=== PATIENT | male | born 1990 | race Caucasian/White ===

== ENCOUNTER 2020-04-15 19:36 | Emergency (ER) | payer OTHER, SELFPAY ==
--- NOTE | ~2020-04-15 | XR_ITS ---
EXAMINATION: XR ankle RT min 3V EXAM DATE: 04/15/2020 19:55 INDICATION: Rolled ankle, lateral swelling . Initial encounter. TECHNIQUE: Right ankle frontal, lateral and oblique projections obtained and reviewed. There is no p rior study for comparison. FINDINGS: The right ankle mortise appears intact. There are no acute fractures or dislocations iden tified. There is no subcutaneous gas. There is swelling along the anterior lateral aspect of the an kle. There is probable ankle joint effusion. There are no radiopaque foreign bodies. IMPRESSION: 1. XR ankle RT min 3V exam without acute osseous findings. 2. Anteromedial swelling. 3. Joint effusion. Reviewed, dictated and finalized at location A. K LAYER
--- NOTE | 2020-04-15 19:40 | ED.GENADULT ---
HPI - General Adult General Chief complaint: Extremity Injury, Lower Stated complaint: right ankle injured Time Seen by Provider: 04/15/20 19:54 Source: patient and RN notes reviewed Mode of arrival: ambulatory Limitations: no limitations History of Present Illness HPI narrative: 30-year-old male presents with complains of tenderness and swelling to the right ankle for 1 day. Juma reports he rolled RT ankle today at 18:15 while playing basketball. Ibuprofen 800mg at 19:00 (prior to arrival) with some relief (upon assessment Juma reports has kicked in some). No radiating pain. Numbness and tingling in toes. No loss of mobility. Inability to bear weight due to tenderness. Exacerbation factor consist of movement and bearing weight. The relieving factor is immobility and Ibuprofen. Denies discoloration. Denies altered sensation, back pain, neck pain, and suspected foreign body. Denies hitting head, loss of consciousness, dizziness, syncopal episodes, seizure activities. Denies fever or chills. The patient reports he had COVID-19 in 12/2019. The patient reports he have not been diagnosed recently with COVID-19. The patient reports he is not waiting for the results of a COVID-19 lab test. The patient reports he do not have fever, chills, weakness, or fatigue. The patient reports he do not have a new or worsening cough or shortness of breath. Denies chest pain. The patient reports he do not have any rhinorrhea, congestion, loss of taste, sore throat, nausea, vomiting, abdominal pain, and diarrhea. Tolerating po intake well. Denies recent traveling. Denies concerns for COVID-19 or exposures been home with limited outdoor exposure except for essential household needs, work, and return home. At this time, patient is not suspected of having COVID-19. Some parts of this dictation were generated by voice recognition software and may contain typographical and/or grammatical inaccuracies. Related Data Home Medications Medication Instructions Recorded Confirmed No Home Medications 04/17/19 04/15/20 Allergies Allergy/AdvReac Type Severity Reaction Status Date / Time No Known Allergies Allergy Verified 04/17/19 09:07 Review of Systems Review of Systems: Narrative: CONSTITUTIONAL: Denies fever, chills, sweats. EYES: Denies visual changes, redness, discharge. ENT: Denies rhinorrhea, congestion, sore throat, otalgia. CARDIOVASCULAR: Denies chest pain, palpitations, edema. RESPIRATORY: Denies dyspnea, wheezing, cough GASTROINTESTINAL: Denies abdominal pain, nausea, vomiting, diarrhea. SKIN: Denies rash or itching. MUSCULOSKELETAL: Denies acute back pain or myalgia. Complains of right ankle swelling and pain. NEUROLOGIC: Denies numbness or focal weakness. PSYCHIATRIC: Denies anxiety or depression. All other systems reviewed & are unremarkable except as noted in HPI and below. [facility] Past Medical History Medical History (Updated 04/16/20 @ 00:00 by [facility] Liliya) ACL (anterior cruciate ligament) tear Surgical History Surgical History (Updated 04/15/20 @ 20:15 by SHU Hernandez) History of knee surgery ACL and menisci clean out Family History Family History (Updated 04/15/20 @ 20:17 by SHU Hernandez) Father , related to intestinal rupturing Abnormal intestinal absorption Mother Alive and well Social History Social History (Updated 04/15/20 @ 20:17 by SHU Hernandez) Smoking status: Never smoker Tobacco type: cigarettes Second hand tobacco smoke exposure: No Alcohol intake: current Substance use: current Substance use type: marijuana Living arrangements: with family Occupation/Education: occupation 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 There is no relevant family
[2020-04-15 19:44] VITALS: BP 155/96; PULSE 89; RESP 16; TEMP 36.4; O2SAT 99
== END 2020-04-15 20:26 | disposition home or self-care (01) ==
PROVIDERS: Emergency Provider Nurse Practitioner Family; PCP Physician Assistant
DX: S93.401A Sprain of unspecified ligament of right ankle, initial encounter (principal); X50.9XXA Other and unspecified overexertion or strenuous movements or postures, initial encounter; Y93.67 Activity, basketball
CPT/HCPCS: 73610; 99213; G0463

== ENCOUNTER → 2022-01-02 11:17 | Outpatient (CLI) | payer OTHER, SELFPAY ==
--- NOTE | ~2022-01-02 | XR_ITS ---
XR abdomen/kub 1V 01/02/2022 11:54 INDICATION: Left ureteral stone TECHNIQUE: KUB COMPARISON: None FINDINGS: Bowel gas pattern is normal. There is no evidence of free air, mass, organomegaly, ascites or obstruction. There is a possible distal left ureteral stone overlying the sacrum. The bones appea r intact. IMPRESSION: 1: Possible 3 mm distal left ureteral stone near the expected location of the UVJ. Reviewed, dictated and finalized at location A. IMPRESSION: 1: Possible 3 mm distal left ureteral stone near the expected location of the U VJ.
--- NOTE | ~2022-01-02 | CT_ITS ---
EXAMINATION: CT abdomen pelvis wo con DATE: 01/02/2022 11:46 INDICATION: Left ureteral stone. Left flank pain. TECHNIQUE: Computed tomography (CT) of the abdomen and pelvis was performed without intravenous contr ast. Automated exposure control and iterative reconstruction technique were employed. The dose-length product was 658.27 mGy-cm. COMPARISON: None. FINDINGS: The visualized portions of the lung bases demonstrate minimal atelectasis. No pleural effus ion. The heart size is normal. No pericardial effusion. The liver demonstrates focal steatosis adjace nt to the falciform ligament. The gallbladder, spleen, pancreas, adrenal glands, and right kidney are normal. There is mild left hydronephrosis and hydroureter. There is a 4 mm stone in distal left uret er. There are no dilated loops of bowel. The appendix is normal. There are no pathologically enlarged lymph nodes. There is no free intraperitoneal fluid. IMPRESSION: 1. 4 mm stone in distal left ureter with mild left hydronephrosis and hydroureter. Reviewed, dictated and finalized at location A. IMPRESSION: 1. 4 mm stone in distal left ureter with mild left hydronephrosis and hydrouret er.
== END ==
PROVIDERS: PCP Physician Assistant; Visit Provider Urology
DX: N20.1 Calculus of ureter (principal)
CPT/HCPCS: 74018; 74176

== ENCOUNTER 2022-01-03 11:01 | Day surgery (SDC) | payer OTHER, SELFPAY ==
[2022-01-03] VITALS (8 sets, daily range): BP systolic 118–145; BP diastolic 72–103; PULSE 62–96; RESP 14–19; TEMP 36.1–37; O2SAT 96–100
--- NOTE | ~2022-01-03 | XR_ITS ---
EXAMINATION: XR retrograde pyelo w/stent LT DATE: 01/03/2022 15:43 INDICATION: Left retrograde Polygram with stone extraction and stent placement. TECHNIQUE: 7 fluoroscopic images of the abdomen and pelvis were obtained during procedure performed b jasmina Alcaraz. Radiologist was not present for the imaging or procedure. The amount of fluoroscopy t shahriar used during this procedure was 0.3 minutes. COMPARISON: KUB and CT dated 01/02/2022 FINDINGS: The distal left ureteral stone is not identified on the earliest provided images and has either been extracted or spontaneously passed. Unchanged small round phlebolith in the left hemipelvis. Subsequen t images demonstrate retrograde contrast injections into the left ureter and renal collecting system which appear normal. Final images demonstrate placement of a left intrarenal stent with loops formed in left renal pelvis and in the bladder. IMPRESSION: 1. Left internal ureteral stent in expected position. Prior distal left ureteral stone is no longer v isualized and has likely passed or been extracted. Correlate with procedure note for further detail. Reviewed, dictated and finalized at location A. IMPRESSION: 1. Left internal ureteral stent in expected position. Prior distal left uretera l stone is no longer visualized and has likely passed or been extracted. Correl ate with procedure note for further detail.
--- NOTE | 2022-01-03 11:09 | ED.GENADULT ---
HPI - General Adult General Chief complaint: Abdominal Pain Stated complaint: left kidney stone cant stop vomiting pcp sent here Time Seen by Provider: 01/03/22 11:03 Source: RN notes reviewed History of Present Illness HPI narrative: Patient presents emergency department from home for nausea vomiting. Patient states that he has been having pain in his left flank for approximately 1 week he states he wanted Dr. Alcaraz for urology yesterday was diagnosed with a 4 mm kidney stone on the left side. States has been taking hydrocodone as well as Toradol Zofran and Flomax at home but continues to have nausea vomiting as well as pain. Patient states he is scheduled for surgery this coming Thursday he denies any fevers or chills chest pain shortness of breath or any other symptoms Related Data Home Medications Medication Instructions Recorded Confirmed hydrocodone 5 mg-acetaminophen 325 1 tablet PO PRN PRN Pain 01/02/22 01/02/22 mg tablet ketorolac 10 mg tablet 10 mg PO PRN PRN Pain 01/02/22 01/02/22 ondansetron 4 mg disintegrating 4 mg PO PRN PRN Nausea 01/02/22 01/02/22 tablet tamsulosin 0.4 mg capsule 0.4 mg PO PRN PRN Spasms 01/02/22 01/02/22 Allergies Allergy/AdvReac Type Severity Reaction Status Date / Time No Known Allergies Allergy Verified 04/17/19 09:07 Review of Systems Review of Systems: Gen.: Denies fevers or chills ENT: Denies congestion Respiratory: Denies shortness of breath or cough CV: Denies chest pain or palpitations GI: See HPI I denies burning, urgency, frequency or hematuria Musculoskeletal: Denies back pain or muscle pain Neuro: Denies numbness, tingling, weakness or focal weakness Skin: Denies rash Except as documented, all other systems reviewed and negative [facility] Past Medical History Medical History ACL (anterior cruciate ligament) tear Surgical History Surgical History (Updated 04/15/20 @ 20:15 by SHU Hernandez) History of knee surgery ACL and menisci clean out Family History Family History (Updated 04/15/20 @ 20:17 by SHU Hernandez) Father , related to intestinal rupturing Abnormal intestinal absorption Mother Alive and well Social History Social History Smoking status: Never smoker Tobacco type: cigarettes Second hand tobacco smoke exposure: No Alcohol intake: current Alcohol use details: 1 PER MONTH Substance use: current Substance use type: marijuana Other substance usage details: 2 TIMES PER WEEK 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 CARDIOVASCULAR: Regular rate and rhythm without murmurs rubs or gallops. ABDOMINAL: Soft, nontender, nondistended, no rebound or guarding mild left flank tenderness MUSCULOSKELETAl: Moves all extremities. No clubbing, cyanosis or edema. NEURO: Awake and alert. Following commands, speech normal, no focal deficits SKIN:: Warm, dry. No rashes lesions or abrasions PSYCHIATRIC: Normal affect/mood, Course Course Emergency Course: Viewed imaging from yesterday including CT scan patient with 4 mm left-sided kidney stone Discussed Dr. Acosta will plan for OR today Discussed with patient plan for or in agreement 1250 Dr. Acosta in ED will take patient to the OR Vital Signs Vital signs: Vital Signs Temperature 97.0 F L 01/03/22 11:09 Pulse Rate 65 01/03/22 11:09 Respiratory Rate 16 01/03/22 11:09 Blood Pressure 144/103 H 01/03/22 11:09 Pulse Oximetry 99 01/03/22 11:09 Oxygen Delivery Room Air 01/03/22 11:09 Temperature 97.0 F L
[2022-01-03] MEDS: SODIUM CHLORIDE 0.9% IV 1,000 ML 999 ML IV CONT (11:15)
[2022-01-03] MEDS: MORPHINE SULFATE (*CRX) 4 MG/ML INJ IV PUSH (11:15)
[2022-01-03 11:22] LABS: Basophils Percent Auto 0.4 % (0.2-1.2); Eosinophils Absolute Auto 0.1 K/mm3 (0-0.3); Eosinophils Percent Auto 0.8 % (0-4.4); Hematocrit 47.2 % (42.0-52.0); Hemoglobin 16.4 g/dL (14.0-18.0); Immature Granulocyte Absolute 0.03 K/mm3 (0.00-0.031); Immature Granulocyte Percent A 0.3 % (0-0.5); Lymphocytes Absolute Auto 1.47 K/mm3 (0.9-3.2); Mean Corpuscular HGB Conc 34.7 g/dl (32-36); Mean Corpuscular Hemoglobin 31.3 pg (26-34); Mean Corpuscular Volume 90.1 fl (80-100); Mean Platelet Volume 8.7 fl (7.4-10.4); Monocytes Absolute Auto 0.9 K/mm3 (0.1-0.6); Monocytes Percent Auto 8.2 % (2.6-8.5); Neutrophils Absolute Auto 8.1 K/mm3 (1.3-6.7); Neutrophils Percent Auto 76.3 % (45.5-73.1); Platelet Count Result 270 k/mm3 (150-375); Red Blood Count 5.24 M/mm3 (4.6-6.20); Red Cell Distribution Width 11.9 % (11.5-14.5); White Blood Count 10.5 K/mm3 (4.5-10.0)
[2022-01-03 11:33] LABS: Alanine Aminotransferase 78 U/L (6-50); Albumin Level 4.7 g/dL (3.5-5.1); Alkaline Phosphatase 73 U/L (38-126); Anion Gap 11 mmol/L (8-16); Aspartate Amino Transferase 48 U/L (17-59); Bilirubin,Total 0.9 mg/dL (0.2-1.3); Blood Urea Nitrogen 16 mg/dL (9-20); Calcium 9.6 mg/dL (8.4-10.2); Carbon Dioxide 28 mmol/L (22-30); Chloride 98 mmol/L (98-107); Estimated CRCL calculation 70 ml/min; Estimated Glomerular Filt Rate 54; Glucose 95 mg/dL (65-110); Potassium 4.1 mmol/L (3.4-5.0); Sodium 137 mmol/L (137-145)
[2022-01-03 12:05] LABS: Appearance Urine Clear (Clear); Bilirubin Urine Negative (Negative); Blood Urine 1+ (Negative); Color Urine Yellow (Yellow); Glucose Urine UA Negative (Negative); Ketones Urine Negative (Negative); Leukocyte Esterase Ur Negative LEU/UL (Negative); Nitrate Urine Negative (Negative); Protein Urine Negative (Negative); Specific Grav Ur 1.015 (1.001-1.035); Urobilinogen Urine 0.2 mg/dL (<2.0); pH Urine 8.5 (5.0-9.0)
[2022-01-03 12:12] LABS: Mucus Urine Rare /lpf; WBC Urine 0-3 /hpf
[2022-01-03 12:15] LABS: Add Urine Microscopic? YES
--- NOTE | 2022-01-03 12:52 | WPDURCON ---
Assessment and Plan Assessment and plan (1) Left ureteral stone: Code(s): N20.1 - Calculus of ureter Status: Acute Plan 31-year-old gentleman with severe left-sided pain due to obstructing distal ureteral stone. -plan left ureteroscopy, laser lithotripsy, stone extraction, possible stent insertion -risks benefits and alternatives discussed the patient and his family and they agreed to proceed Urology Consult Note HPI Date Seen: 01/03/22 Requesting Physician: Lucia Acosta MD Primary Care Provider: Michelle Davis, PA Consult Narrative Narrative: Juma Gomes is a 31 year old male with known left distal ureteral stone who was seen in the office yesterday and now with severe pain and worsening nausea and vomiting. [facility] Past Medical History Medical History (Updated 01/03/22 @ 12:54 by Lucia Acosta MD) ACL (anterior cruciate ligament) tear Left ureteral stone Surgical History Surgical History (Updated 04/15/20 @ 20:15 by SHU Hernandez) History of knee surgery ACL and menisci clean out Family History Family History (Updated 04/15/20 @ 20:17 by SHU Hernandez) Father , related to intestinal rupturing Abnormal intestinal absorption Mother Alive and well Social History Social History Smoking status: Never smoker Tobacco type: cigarettes Second hand tobacco smoke exposure: No Alcohol intake: current Alcohol use details: 1 PER MONTH Substance use: current Substance use type: marijuana Other substance usage details: 2 TIMES PER WEEK 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 Gender identity (if verbalized by the patient): Male Meds Home Medications and Allergies Home Medications Medication Instructions Recorded Confirmed Type hydrocodone 5 mg-acetaminophen 325 1 tablet PO PRN PRN Pain 01/02/22 01/02/22 History mg tablet ketorolac 10 mg tablet 10 mg PO PRN PRN Pain 01/02/22 01/02/22 History ondansetron 4 mg disintegrating 4 mg PO PRN PRN Nausea 01/02/22 01/02/22 History tablet tamsulosin 0.4 mg capsule 0.4 mg PO PRN PRN Spasms 01/02/22 01/02/22 History Allergies Allergy/AdvReac Type Severity Reaction Status Date / Time No Known Allergies Allergy Verified 04/17/19 09:07 Vital Signs Vital Signs - 24 hr 01/03/22 11:09 Temperature 36.1 C L Pulse Rate 65 Respiratory Rate 16 Blood Pressure 144/103 H Pulse Oximetry 99 Oxygen Delivery Room Air Exam Narrative: Patient is awake alert no acute distress. His breathing is unlabored. His abdomen is soft nontender nondistended Results Labs CBC & Chem 7: 01/03/22 11:10 01/03/22 11:10 Labs: Short CBC 01/03/22 Range/Units 11:10 WBC 10.5 H (4.5-10.0) K/mm3 Hgb 16.4 (14.0-18.0) g/dL Hct 47.2 (42.0-52.0) % Plt Count 270 (150-375) k/mm3 BMP 01/03/22 11:10 Sodium 137 Potassium 4.1 Chloride 98 Carbon Dioxide 28 BUN 16 Creatinine 1.50 H Glucose 95 Calcium 9.6 Liver Function 01/03/22 Range/Units 11:10 Total Bilirubin 0.9 (0.2-1.3) mg/dL AST 48 (17-59) U/L ALT 78 H (6-50) U/L Alkaline Phosphatase 73 (38-126) U/L Albumin 4.7 (3.5-5.1) g/dL Urine 01/03/22 Range/Units 11:09 Urine Color Yellow (Yellow) Urine Appearance Clear (Clear) Urine pH 8.5 (5.0-9.0) Ur Specific [place] 1.015 (1.001-1.035) Urine Protein Negative (Negative) mg/dL Urine Glucose (UA) Negative (Negative) mg/dL Imaging Radiologist's impression: Patient: Juma Gomes : 1990 MR#: [id number] Age/Sex: 31 / M Acct:[id number] Loc: [facility]? ? ADM Date: 01/02/22Attending Dr: Nacho Alcaraz MD Ordering Physician: Nacho Alcaraz MD Date of Service: 01/02/22 Procedure(s): CT abdomen pelvis wo con Accession Number(s): [id number] cc: F
--- NOTE | 2022-01-03 12:54 | WPDHPUPDATE1 ---
History and Physical Update Update Date/Time: 01/03/22 12:54 History and Physical has been reviewed, including an updated exam of the patient. There are NO changes in the patient's condition. Risks, benefits, and alternatives have been discussed and questions answered. Patient agrees to proceed with procedure.
--- NOTE | 2022-01-03 13:26 | PC.NURSE ---
Patient taken by DEQUAN King to pre-op for procedure. Patient care report given to DEQUAN King. All questions answered at this time.
[2022-01-03] MEDS: LACTATED RINGERS 1,000 ML 30 ML IV CONT (13:52)
[2022-01-03] MEDS: ceFAZolin 2 GM/D5W 50 ML 2 GM/50 ML BAG IVPB (15:13)
--- NOTE | 2022-01-03 15:24 | WPDANESEPPF ---
Anes - Initial Pre Proc Eval Procedure: Operation Date: 01/03/22 17:00 Proposed Procedures p Cystoscopy, Left Ureteroscopy, Possible Left Retrograde Pyelogram, Possible Left Stone Extraction, Possible Left Stent Placement, Possible Holmium Laser - Lucia Acosta MD Date/Time: 01/03/22 15:24 Surgeon: Lucia Acosta MD Pre Op Diagnosis: left kidney stone cant stop vomiting pcp sent here Patient Data Age: 31 Gender: M Height: 1.7 m Weight: 94.5 kg Last Vital Signs Temp 37.0 C 01/03/22 13:55 Pulse 62 01/03/22 14:16 Resp 14 01/03/22 14:16 BP 136/78 01/03/22 14:16 Pulse Ox 100 01/03/22 13:55 O2 Del Method Room Air 01/03/22 13:55 Allergies Allergy/AdvReac Type Severity Reaction Status Date / Time No Known Allergies Allergy Verified 01/03/22 13:57 Home Medications Medication Instructions Recorded Confirmed Type hydrocodone 5 mg-acetaminophen 325 1 tablet PO PRN PRN Pain 01/02/22 01/02/22 History mg tablet ketorolac 10 mg tablet 10 mg PO PRN PRN Pain 01/02/22 01/02/22 History ondansetron 4 mg disintegrating 4 mg PO PRN PRN Nausea 01/02/22 01/02/22 History tablet tamsulosin 0.4 mg capsule 0.4 mg PO PRN PRN Spasms 01/02/22 01/02/22 History Laboratory Tests 01/03/22 01/03/22 01/03/22 11:09 11:10 11:10 WBC 10.5 K/mm3 H K/mm3 (4.5-10.0) RBC 5.24 M/mm3 M/mm3 (4.6-6.20) Hgb 16.4 g/dL g/dL (14.0-18.0) Hct 47.2 % % (42.0-52.0) MCV 90.1 fl fl (80-100) MCH 31.3 pg pg (26-34) MCHC 34.7 g/dl g/dl (32-36) RDW 11.9 % % (11.5-14.5) Plt Count 270 k/mm3 k/mm3 (150-375) MPV 8.7 fl fl (7.4-10.4) Immature Gran % (Auto) 0.3 % % (0-0.5) Neut % (Auto) 76.3 % H % (45.5-73.1) Lymph % (Auto) 14.0 % L % (18.3-44.2) [place] % (Auto) 8.2 % % (2.6-8.5) Eos % (Auto) 0.8 % % (0-4.4) Baso % (Auto) 0.4 % % (0.2-1.2) Lymph # (Auto) 1.47 K/mm3 K/mm3 (0.9-3.2) [place] # (Auto) 0.9 K/mm3 H K/mm3 (0.1-0.6) Eos # (Auto) 0.1 K/mm3 K/mm3 (0-0.3) Baso # (Auto) 0.0 K/mm3 K/mm3 (0.0-0.1) Abs Immat Gran (auto) 0.03 K/mm3 K/mm3 (0.00-0.031) Absolute Neuts (auto) 8.1 K/mm3 H K/mm3 (1.3-6.7) Absolute Nucleated RBC 0.0 K/mm3 K/mm3 (0.0-0.012) Nucleated RBC % 0.0 % % (0.0-0.2) Sodium 137 mmol/L mmol/L (137-145) Potassium 4.1 mmol/L mmol/L (3.4-5.0) Chloride 98 mmol/L mmol/L (98-107) Carbon Dioxide 28 mmol/L mmol/L (22-30) Anion Gap 11 mmol/L mmol/L (8-16) BUN 16 mg/dL mg/dL (9-20) Creatinine 1.50 mg/dL H mg/dL (0.7-1.3) Estim Creat Clear Calc 70 ml/min ml/min Estimated GFR 54 L (59 - ) Glucose 95 mg/dL mg/dL (65-110) Calcium 9.6 mg/dL mg/dL (8.4-10.2) Total Bilirubin 0.9 mg/dL mg/dL (0.2-1.3) AST 48 U/L U/L (17-59) ALT 78 U/L H U/L (6-50) Alkaline Phosphatase 73 U/L U/L (38-126) Total Protein 8.0 g/dL g/dL (6.3-8.2) Albumin 4.7 g/dL g/dL (3.5-5.1) Urine Color Yellow (Yellow) Urine Appearance Clear (Clear) Urine pH 8.5 (5.0-9.0) Ur Specific [place] 1.015 (1.001-1.035) Urine Protein Negative mg/dL mg/dL (Negative) Urine Glucose (UA) Negative mg/dL mg/dL (Negative) Urine Ketones Negative mg/dL mg/dL (Negative) Ur Blood (Man) 1+ H (Negative) Urine Nitrate Negative (Negative) Urine Bilirubin Negative (Negative) Urine Urobilinogen 0.2 mg/dL mg/dL (<2.0) Leukocyte Esterase Rfl Negative MAIK/UL MAIK/UL (Negative) Urine RBC 6-10 /hpf H /hpf (0-2) Urine WBC 0-3 /hpf /hpf Urine Mucus
[2022-01-03] MEDS: LIDOCAINE HCL 2% GEL UROJET 10 ML PKG MUCOUS MEM (15:27)
--- NOTE | 2022-01-03 15:40 | W.PM.PROC2 ---
Procedure Note - Detailed Date of Procedure 01/03/22 Pre-op Diagnosis Left ureteral calculus 4-5 mm Post-op Diagnosis Same Procedure Performed Cystoscopy, left retrograde pyelogram, left ureteroscopy with stone extraction, left ureteral stent placement 4.8 Peruvian contour Surgeon Nacho Alcaraz MD Anesthesia General Description of Procedure Patient is taken to the operative suite correctly identified. Once anesthesia was obtained was placed in dorsal lithotomy position and prepped and draped usual sterile fashion. Twenty-two Peruvian scope was inserted into the bladder. The left ureteral orifice was cannulated with a guidewire. We dilated with an 8/10 dilator. Rigid ureteral scope was then inserted. The stone was grasped and removed its entirety. Pyelogram was then performed confirm placement of the stent. 4.8 Peruvian contour stent was then placed with the proximal end coiled in the left renal pelvis and the distal in the bladder. Patient's bladder was drained. 2% viscous lidocaine was inserted into the urethra patient is taken recovery stable condition. He will follow up in a week's time for stent removal. Drains Yes Packing No Pathology Yes Complications No immediate complications Condition Stable Disposition PACU
== END 2022-01-03 16:53 | disposition home or self-care (01) ==
LOC: ANHED 11:36 → ANHSURGERY 11:38
PROVIDERS: Urology; Emergency Provider Emergency Medicine; PCP Physician Assistant; Visit Provider Urology
PROC: (CPT 52352; principal; 2022-01-03 17:00)
DX: N13.2 Hydronephrosis with renal and ureteral calculous obstruction (principal); F12.90 Cannabis use, unspecified, uncomplicated
CPT/HCPCS: 52332; 52352; 36415; 74420; 80053; 81001; 82365; 85025; 88300; A9270; C1769; C2617; J0330; J0690; J1100; J2250; J2270; J2405; J2704; J3010; J7030; J7120

== ENCOUNTER 2023-04-06 18:43 | Emergency (ER) | payer OTHER, SELFPAY ==
[2023-04-06 18:46] VITALS: BP 118/72; PULSE 70; RESP 16; TEMP 36.8; O2SAT 98
== END 2023-04-06 18:46 | disposition left against medical advice (07) ==
LOC: ANHED 18:58
PROVIDERS: PCP Physician Assistant
DX: S63.257A Unspecified dislocation of left little finger, initial encounter (principal)
CPT/HCPCS: 99199

== ENCOUNTER 2024-10-20 09:03 | Emergency (ER) | payer OTHER, SELFPAY ==
--- NOTE | ~2024-10-20 | CT_ITS ---
CT of the Abdomen and Pelvis: Indication: Abdominal pain Technique: 2.5 mm axial scans were obtained through the abdomen and pelvis following intravenous adm inistration of 100 cc of Omnipaque 350. Dose reduction technique was used on this scan by utilizing a utomated exposure control and iterative reconstruction technique. The dose-length product (DLP) was 6 18.58 mGy-cm. COMPARISON: 01/02/2022 Findings: Scans through the lung bases are unremarkable. The liver, spleen, pancreas, gallbladder, adrenals and kidneys are within normal limits. No evidence of aortic aneurysm. No lymphadenopathy. No bowel obstruction or bowel wall thickening. There is no evidence to suggest acute appendicitis. Images through the pelvis were performed. Urinary bladder unremarkable. No pelvic mass seen. No ascit es. Impression: No significant abnormalities seen. Reviewed, dictated and finalized at [facility]. Impression: No significant abnormalities seen.
[2024-10-20 09:05] VITALS: BP 140/79; PULSE 62; RESP 14; TEMP 36.5; O2SAT 98
--- OUTSIDE RECORDS SUMMARY | 2024-10-20 09:08 | XMS_ITS | Clinical Summary ---
Author Organization [facility] Address [address] [place] [address] Care Team Providers Care Tourist Cabin Keeper Name Role Phone Wilber Taveras MD Primary Care Provider [phone] Allergies No known active allergies Medications albuterol HFA (PROVENTIL HFA,VENTOLIN HFA,PROAIR HFA) 90 mcg/actuation inhalerIndicati ons:Bronchitis Inhale 2 puffs every 4 (four) hours as needed for shortness of breath or wheezing (cough) 18 g 4 Active benzonatate (TESSALON) 200 mg capsuleIndicati ons:Bronchitis Take 1 capsule (200 mg total) by mouth 3 (three) times a day as needed for cough 30 capsule 4 Active Active Problems Problem Noted Date Diagnosed Date Annual physical exam 01/08/2023 Assessment & Plan (01/08/2023 3:07 PM CDT): Discussed lifestyle modifications, diet and exercise. Routine blood work ordered/reviewed today. Yearly vision and dental examinations. Fatigue 01/08/2023 Assessment & Plan (01/08/2023 3:07 PM CDT): Unsure of cause at this time Will check labs Vitamin levels If all normal may need referral to sleep medicine But pt states taht he sleeps well Otherwise no other associated sx Sprain of anterior talofibular ligament of right ankle 04/30/2020 It band syndrome, right 09/04/2017 Immunizations Immunization Administration Dates Next Due Hep B, Adolescent or Pediatric 03/12/2000,1998,04/05/1998 HiB 09/01/1990 Influenza, Quadrivalent, Spl it, Preservative Free, Intramuscular 06/06/2022 Influenza, Trivalent, Cell Culture-based MDCK, Preservative Free, Antibiotic Free, Intramuscular 02/25/2020 MMR 07/09/1994,09/01/1990 OPV 07/09/1994, 1,1989,04/07 Surgical History Surgery Date Site/Laterality Comments OTHER SURGICAL HISTORY 06/01/2011 - 05/31/2012 Ear infections, chronic: ventilation tube, right OTHER SURGICAL HISTORY 06/01/2009 - 05/31/2010 ACL tear: ACL reconstruction (right) ARTHROSCOPIC REPAIR ACL Right KNEE ARTHROSCOPY W/ LATERAL RELEASE Acl surgery right knee Medical History Medical History Date Comments Hx Other Medical 2004 Viral meninigit is History of chronic ear infection Ear infections, chronic Hx Other Medical ACL tear Kidney stone 12/30/2021 Family History Medical History Relation Name Comments Drug abuse Brother 1 Jose Polycystic kidney disease Brother 2 Other Father Peptic ulcer di sease; Alzheimer's disease Maternal Grandfather Eliecer Dixon Other Mother Alive and well; Diabetes Other Relation Name Status Comments Brother 1 Jose Brother 2 Alive Father Alive Maternal Grandfather Eliecer Dixon Mother Alive Other Social History Tobacco Use Types Packs/Day Years Used Date Smoking Tobacco: Never Smokeless Tobacco: Never Tobacco Cessation:Counseling Given: Not Answered Alcohol Use Standard Drinks/Week Comments Yes 0 (1 standard drink = 0.6 oz pur e alcohol) Once per week PHQ-2 Answer Date Recorded PHQ-2 Total Score (If total score is 3 or more points, staff should administer the PHQ-9) 0 01/08/2023 Sex and Gender Information Value Date Recorded Sex Assigned at Not on file Legal 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 Gender Identity Male 04/30/2020 1:07 PM INSURANCE BUSINESS ANALYST Sexual Orientation Not on file Obstetrics History Last Filed Vital Signs Vital Sign Reading Time Taken Comments Blood Pressure 124/84 12/28/2023 11:53 AM CDT Pulse 74 12/28/2023 11:53 AM CDT Temperature 36.8 C (98.3 F) 12/28/2023 11:53 AM CDT Respiratory Rate 16 12/28/2023 11:53 AM CDT Oxygen Saturation 97% 12/28/2023 11:53 AM CDT Inhaled Oxygen Concentration - - Weight 90.7 kg (200 lb) 12/28/2023 11:53 AM CDT Height 170.2 cm (5' 7 ) 12/28/2023 11:53 AM CDT Body Mass Index 31.32 12/28/2023 11:53 AM CDT Plan of Treatment Health Maintenance Due Date Last Done Comments Hepatitis C Screening 1989 DTaP/Tdap/Td Vaccine (6 - Tdap) 02/06/2000 07/09/1994, 09/01/1990, 1989, Additional history exists Varicella Vaccines (1 of 2 - 13+ 2-dose series) 2002 Depression Screening 01/09/2024 01/08/2023 Regular Well Visit/Exam 18-64 01/09/2024 01/08/2023 Covid-19 Vaccine ( season) 2024 08/18/2020, 07/21/2020 Influenza Vaccine (Season Ended) 2025 06/06/2022, 03/18/2021, 02/26/2020, Additional history exists Hepatitis B Screening Completed 03/12/2000 , 01/31/1999, 04/05/1998 HPV Vaccines Aged Out No longer eligi ble based on patient's age to complete this topic Pneumococcal vaccine <65 Aged Out No longer eligible based on patient's age to complete [place] [address] [facility] CHOICE PLUS [facility] HMO/PPO Address: [address] [address] [place] [address] [facility] CHOICE PLUS [facility] HMO/PPO Address: [address] [address] [place] [address] [place] [address] Care Teams Tourist Cabin Keeper Relationship Specialty Start Date End Date Wilber Taveras MD [address] [facility] [place] [address] PCP - General Family Medicine 01/08/23
--- OUTSIDE RECORDS SUMMARY | 2024-10-20 09:08 | XMS_ITS | Referral Summary ---
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
--- OUTSIDE RECORDS SUMMARY | 2024-10-20 09:08 | XMS_ITS | Clinical Summary ---
Author Organization [facility] Address [address], [facility] [address] [place] [address] Phone Care Team Providers Care Machine Stuffer Name Role Phone Wilber Taveras MD Primary Care Provider [phone] Allergies No known active allergies Medications sucralfate (CARAFATE) 1 GM TabletIndication s:Gastroesophage al reflux disease, unspecified whether esophagitis present TAKE 1 TABLET BY MOUTH FOUR TIMES DAILY 1 HOUR BEFORE MEALS AND AT BEDTIME 40 Tablet 06/11/2021 Active Cyanocobalamin (VITAMIN B12 PO) Take by mouth daily. Active dicyclomine (BENTYL) 20 MG Tablet Take 1 Tablet by mouth 2 times daily. 60 Tablet 2 07/09/2021 Active Active Problems No known active problems Immunizations Immunization Administration Dates Next Due DTP Vaccine 07/09/1994, 1,1989,1989,1989 Hepatitis B Vaccine, Pediatric/adolescent 03/12/2000,01/31/1999,04/05/1998 Hib Vaccine,unspecified Formulation 09/01/1990 Influenza Vaccine greater than 3 yrs 03/18/2021, 02/26/2020 Influenza Vaccine, MDCK,quad rivalent, pres free 02/25/2020 Influenza Vaccine, Quadrivalent, PF 06/06/2022 Influenza, Seasonal, Injecta ble, Undefined 03/18/2021 MMR Vaccine 07/09/1994,09/01/1990 OPV 07/09/1994, 1,1989,1988 TB Skin Test 01/03/2020 Family History Medical History Relation Name Comments Alzheimer's Disease Maternal Grandfather Relation Name Status Comments Brother Alive Father Maternal Grandfather Mother Alive Social History Tobacco Use Types Packs/Day Years Used Date Smoking Tobacco: Never Smokeless Tobacco: Never Tobacco Cessation:Counseling Given: Not Answered Alcohol Use Standard Drinks/Week Comments Not Currently 0 (1 standard drink = 0.6 oz pur e alcohol) PHQ-2 Answer Date Recorded Total Score - Questions 1-9 0 04/01 Education Answer Date Recorded What is the highest level of school you have completed or the highest degree you have received? Bachelor's degree (e.g., BA, AB, BS) 01/03/2020 Sexually Active Control Partners Comments Yes Sex and Gender Information Value Date Recorded Sex Assigned at Not on file Legal Sex Male 8:59 PM CDT Gender Identity Not on file Sexual Orientation Not on file Last Filed Vital Signs Vital Sign Reading Time Taken Comments Blood Pressure 137/85 04/07/2023 2:15 AM INVESTIGATOR NARCOTICS Pulse 78 04/07/2023 2:15 AM INVESTIGATOR NARCOTICS Temperature 36.2 C (97.2 F) 04/07/2023 12:38 AM INVESTIGATOR NARCOTICS Respiratory Rate 20 04/07/2023 2:15 AM INVESTIGATOR NARCOTICS Oxygen Saturation 99% 04/07/2023 2:15 AM INVESTIGATOR NARCOTICS Inhaled Oxygen Concentration - - Weight 86.2 kg (190 lb) 04/07/2023 12:38 AM INVESTIGATOR NARCOTICS Height 170.2 cm (5' 7 ) 04/07/2023 12:38 AM INVESTIGATOR NARCOTICS Body Mass Index 29.76 04/07/2023 12:38 AM INVESTIGATOR NARCOTICS Plan of Treatment Health Maintenance Due Date Last Done Comments Hepatitis C Virus (HCV) Screening 1989 DTaP/Tdap/Td Immunization (6 - Tdap) 02/06/2000 07/09/1994, 09/01/1990, 1989, Additional history exists SARS-COV-2 Immunization ( season) 2024 08/18/2020, 07/21/2020 Influenza Immunization (Season Ended) 2025 06/06/2022, 03/18/2021, 03/18/2021, Additional history exists Respiratory Syncytial Virus (RSV) Immunization (Adult) (1 - 1-dose 75+ series) 02/06/2064 Hepatitis B Immunization Completed 000, 01/31/1999, 04/05/1998 Human Papillomavirus (HPV) Immunization Aged Out No longer eligible based on patient's age to complete this topic Meningococcal Immunization (ACWY) Aged Out No longer eligible based on patient's age to complete this topic Pneumococcal Immunization Combined Aged Out No longer eligible based on patient's age to complete this topic Rotavirus Immunization Aged Out No lo nger eligible based on patient's age to complete this topic Insurance [place] [address] Care Teams Machine Stuffer Relationship Specialty Start Date End Date Wilber Taveras MD [address] [place] [address] PCP - General Wearing Apparel Assembler 04/07/23
--- NOTE | 2024-10-20 09:15 | ECG_ITS ---
Test Date: 2024-10-20 09:21:35 Measurements Intervals [place] Rate: 54 P: 19 GA: 141 QRS: 15 QRSD: 100 T: 11 QT: 401 QTc: 380 Interpretive Statements SINUS BRADYCARDIA No previous ECG available for comparison Electronically Signed On 10-20-2024 14:08:58 CDT by Chava Patrick M.D.
[2024-10-20 09:31] LABS: Basophils Percent Auto 0.5 % (0.2-1.2); Eosinophils Percent Auto 0.5 % (0-4.4); Hematocrit 47.4 % (42.0-52.0); Hemoglobin 16.3 g/dL (14.0-18.0); Immature Granulocyte Absolute 0.03 K/mm3 (0.00-0.031); Immature Granulocyte Percent A 0.4 % (0-0.5); Lymphocytes Absolute Auto 1.37 K/mm3 (0.9-3.2); Lymphocytes Percent Auto 17.8 % (18.3-44.2); Mean Corpuscular HGB Conc 34.4 g/dl (32-36); Mean Corpuscular Volume 90.3 fl (80-100); Mean Platelet Volume 8.4 fl (7.4-10.4); Monocytes Absolute Auto 0.5 K/mm3 (0.1-0.6); Monocytes Percent Auto 6.3 % (2.6-8.5); Neutrophils Absolute Auto 5.7 K/mm3 (1.3-6.7); Neutrophils Percent Auto 74.5 % (45.5-73.1); Platelet Count Result 337 k/mm3 (150-375); Red Blood Count 5.25 M/mm3 (4.6-6.20); Red Cell Distribution Width 11.8 % (11.5-14.5); White Blood Count 7.7 K/mm3 (4.5-10.0)
[2024-10-20 09:40] LABS: Add Urine Microscopic? YES; Appearance Urine Turbid (Clear); Bacteria Urine None Seen /hpf; Bilirubin Urine Negative (Negative); Blood Urine Negative (Negative); Color Urine Yellow (Yellow); Glucose Urine UA Negative (Negative); Ketones Urine 1+ mg/dL (Negative); Leukocyte Esterase Ur Trace LEU/UL (Negative); Nitrate Urine Negative (Negative); Non Pathogenic Casts 0-2; Protein Urine Negative (Negative); Specific Grav Ur 1.015 (1.001-1.035); Squamous Epithelial Cell Urine None Seen /hpf (Few); Urobilinogen Urine 0.2 mg/dL (<2.0); WBC Urine 0-5 /hpf (0-3)
[2024-10-20 09:43] LABS: Alanine Aminotransferase 30 U/L (6-50); Albumin Level 4.6 g/dL (3.5-5.1); Alkaline Phosphatase 62 U/L (38-126); Anion Gap 8 mmol/L (4-12); Aspartate Amino Transferase 42 U/L (17-59); Blood Urea Nitrogen 13 mg/dL (9-20); Calcium 9.9 mg/dL (8.4-10.2); Carbon Dioxide 26 mmol/L (22-30); Chloride 106 mmol/L (98-107); Estimated CRCL calculation 113 ml/min; Estimated Glomerular Filt Rate > 60; Glucose 101 mg/dL (65-110); Lipase 50 U/L (23-300); Potassium 3.9 mmol/L (3.4-5.0); Sodium 140 mmol/L (137-145)
--- NOTE | 2024-10-20 09:48 | ED_ITS ---
HPI - Abdominal Pain General Chief Complaint: Abdominal Pain Stated Complaint: abd pain, vomiting in the morning x 11 days Time Seen by Provider: 10/20/24 09:05 Source: patient Mode of arrival: ambulatory Limitations: no limitations History of Present Illness HPI narrative: Patient is a 34-year-old male who presents the ED with report of abdominal pain and vomiting. Patient reports over the past 2 weeks, he has had persistent pain throughout his upper abdomen, and vomiting in the mornings. States in the last 9 out of 11 days, he has had vomiting in the mornings. He notes he had 4 episodes of emesis this morning. He denies vomiting throughout the rest of the day. Does feel slightly nauseous still currently. Also reports decreased p.o. intake/appetite, denies diarrhea patient. Denies fevers. Denies chest pain or chest shortness of breath. Denies history of previous gallbladder pancreas issues, GERD. Related Data Home Medications ?Medication ?Instructions ?Recorded ?Confirmed ?Last Taken ?Type hydrocodone 5 mg-acetaminophen 325 1 tablet PO PRN PRN Pain 01/02/22 01/02/22 Unknown History mg tablet ketorolac 10 mg tablet 10 mg PO PRN PRN Pain 01/02/22 01/02/22 Unknown History ondansetron 4 mg disintegrating 4 mg PO PRN PRN Nausea 01/02/22 01/02/22 Unknown History tablet tamsulosin 0.4 mg capsule 0.4 mg PO PRN PRN Spasms 01/02/22 01/02/22 Unknown History Allergies Allergy/AdvReac Type Severity Reaction Status Date / Time No Known Allergies Allergy Verified 10/20/24 10:02 Review of Systems 2 Review of Systems: All systems reviewed & are unremarkable except as noted in HPI. All systems reviewed & are unremarkable except as noted in HPI and below PMFSH Past Medical History Medical History Left ureteral stone ACL (anterior cruciate ligament) tear Surgical History Surgical History History of knee surgery ACL and menisci clean out Family History Family History Father , related to intestinal rupturing Abnormal intestinal absorption Mother Alive and well Social History Social History Smoking status: Never smoker Tobacco type: cigarettes Second hand tobacco smoke exposure: No Alcohol intake: current Alcohol use details: 1 PER MONTH Substance use: current Substance use type: marijuana Other substance usage details: 2 TIMES PER WEEK Living arrangements: with family Occupation/Education: occupation 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 HEAD: Normocephalic, atraumatic. RESPIRATORY: Airway patent, respirations nonlabored. Clear to auscultation bilaterally, no rales, rhonchi, wheezing. CARDIOVASCULAR: Regular rate and rhythm without murmurs, rubs, or gallops. ABDOMINAL: Soft, mild tenderness to palpation in epigastric region, LLQ, no rebound. Nondistended. Normoactive BS. MUSCULOSKELETAL: Moves all extremities. No gross deformities. SKIN: Warm, dry, normal color. NEURO: A&O X3. Speech clear. PSYCHIATRIC: Appropriate mood and affect. Normal interaction. Course Vital Signs Vital signs: Vital Signs Temperature 97.7 F 10/20/24 09:05 Pulse Rate 62 10/20/24 09:05 Respiratory Rate 14 10/20/24 09:05 Blood Pressure 140/79 10/20/24 09:05 Pulse Oximetry 98 10/20/24 09:05 Oxygen Delivery Room Air 10/20/24 09:05 Temperature 97.7 F 10/20/24 09:05 Pulse Rate 62 10/20/24 09:05 Respiratory Rate 14 10/20/24 09:05 Blood Pressure 140/79 10/20/24 09:05 Pulse Oximetry 98 10/20/24 09:05 Oxygen Delivery Room Air 10/20/24 09:05 MDM - Abdominal Pain MDM Narrative Medical decision making narrative: Patient presented to ED with upper abdominal pain, persistent nausea and vomiting in the mornings over the past 2 weeks. Vital signs stable upon arrival. Patient in no acute distress. Cbc without leukocytosis or anemia. CMP is unremarkable. Stable electrolytes. Stable kidney function. Normal LFTs and lipase. UA with 1+ ketones, trace amount of RBC, no signs of infection. CT scan of abdomen/pelvis was obtained and unremarkable. No acute findings. Gallbladder appeared normal. Discussed lab and imaging findings with patient. Discussed my suspicion for acid reflux versus gastritis versus PUD. Will start patient on PPI. Will also prescribe Bentyl and Zofran for home use. Patient has a follow-up appointment with his primary care doctor next week. Will also refer to GI. Patient given strict return precautions. He is in agreement with plan. Discharged in stable condition. Medical Records Attestation: I reviewed the patient's medical records. Lab Data Attestation: I reviewed the patient's lab results. 10/20/24 09:19 10/20/24 09:19 Labs: Lab Results 10/20/24 Range/Units 09:19 WBC 7.7 (4.5-10.0) K/mm3 RBC 5.25 (4.6-6.20) M/mm3 Hgb 16.3 (14.0-18.0) g/dL Hct 47.4 (42.0-52.0) % MCV 90.3 (80-100) fl MCH 31.0 (26-34) pg MCHC 34.4 (32-36) g/dl RDW 11.8 (11.5-14.5) % Plt Count 337 (150-375) k/mm3 MPV 8.4 (7.4-10.4) fl Immature Gran % (Auto) 0.4 (0-0.5) % Neut % (Auto) 74.5 H (45.5-73.1) % Lymph % (Auto) 17.8 L (18.3-44.2) % [place] % (Auto) 6.3 (2.6-8.5) % Eos % (Auto) 0.5 (0-4.4) % Baso % (Auto) 0.5 (0.2-1.2) % Lymph # (Auto) 1.37 (0.9-3.2) K/mm3 [place] # (Auto) 0.5 (0.1-0.6) K/mm3 Eos # (Auto) 0.0 (0-0.3) K/mm3 Baso # (Auto) 0.0 (0.0-0.1) K/mm3 Abs Immat Gran (auto) 0.03 (0.00-0.031) K/mm3 Absolute Neuts (auto) 5.7 (1.3-6.7) K/mm3 Absolute Nucleated RBC 0.000 (0.0-0.012) K/mm3 Nucleated RBC % 0.0 (0.0-0.2) % Sodium 140 (137-145) mmol/L Potassium 3.9 (3.4-5.0) mmol/L Chloride 106 (98-107) mmol/L Carbon Dioxide 26 (22-30) mmol/L Anion Gap 8 (4-12) mmol/L BUN 13 (9-20) mg/dL Creatinine 0.85 (0.7-1.3) mg/dL Estim Creat Clear Calc 113 ml/min Estimated GFR > 60 (59 - ) Glucose 101 (65-110) mg/dL Calcium 9.9 (8.4-10.2) mg/dL Total Bilirubin 1.0 (0.2-1.3) mg/dL AST 42 (17-59) U/L ALT 30 (6-50) U/L Alkaline Phosphatase 62 (38-126) U/L Total Protein 8.0 (6.3-8.2) g/dL Albumin 4.6 (3.5-5.1) g/dL Lipase 50 (23-300) U/L Urine Color Yellow (Yellow) Urine Appearance Turbid H (Clear) Urine pH 8.0 (5.0-9.0) Ur Specific Mcdonald 1.015 (1.001-1.035) Urine Protein Negative (Negative) mg/dL Urine Glucose (UA) Negative (Negative) mg/dL Urine Ketones 1+ H (Negative) mg/dL Ur Blood (Man) Negative (Negative) Urine Nitrate Negative (Negative) Urine Bilirubin Negative (Negative) Urine Urobilinogen 0.2 (<2.0) mg/dL Leukocyte Esterase Rfl Trace H (Negative) MAIK/UL Urine RBC 3-5 H (0-2) /hpf Urine WBC 0-5 (0-3) /hpf Ur Squamous Epith Cells None seen (Few) /hpf Urine Bacteria None seen /hpf Urine Casts 0-2 Imaging Data Attestation: I personally reviewed and interpreted this imaging study as follows: Radiologist's impression: ITS Impressions Abdomen/Pelvis CT 10/20/24 10:36 Impression: No significant abnormalities seen. Discharge Plan Discharge Clinical Impression: Acute upper abdominal pain, Nausea and vomiting Patient Disposition: Home Condition: Stable Instructions: Antibiotic Form, Gastritis (ED), Diet for Stomach Ulcers and Gastritis (ED), GERD (Gastroesophageal Reflux Disease) (ED), Abdominal Pain (ED) Additional Instructions: Recommend taking Protonix daily for acid reflux suppression. Utilize zofran as needed for further nausea. You may use Tylenol, Bentyl as needed for further abdominal discomfort. Recommend avoiding anti-inflammatories/NSAIDs (ibuprofen, Motrin, naproxen, Advil) as these can cause irritation to the stomach. Recommend avoiding foods that are very greasy, spicy, acidic, alcoholic beverages which can also cause irritation to the stomach. Increase fluid intake. Recommend electrolyte rich fluids, gatorade, pedialyte, body armour. Recommend clear liquids or bland diet until symptoms improve, such as bananas, rice, applesauce, toast, or crackers. Follow up with your primary care doctor and/or GI for further evaluation. Return to the ED if you experience worsening or severe symptoms, unable to keep down food or drink, severe pain, fevers, rectal bleeding, vomiting blood, or any other symptoms of concern. Patient Language: Taiwanese Prescriptions: New dicyclomine 20 mg tablet 20 mg PO TID PRN (Reason: Abdominal Discomfort) Qty: 15 0RF pantoprazole [Protonix] 40 mg tablet,delayed release (DR/EC) 40 mg PO HS 28 Days Qty: 28 0RF ondansetron 4 mg tablet,disintegrating 4 mg PO Q8H PRN (Reason: nausea and vomiting) Qty: 15 0RF No Action hydrocodone-acetaminophen 5-325 mg tablet 1 tablet PO PRN PRN (Reason: Pain) ketorolac 10 mg tablet 10 mg PO PRN PRN (Reason: Pain) tamsulosin 0.4 mg capsule 0.4 mg PO PRN PRN (Reason: Spasms) ondansetron 4 mg tablet,disintegrating 4 mg PO PRN PRN (Reason: Nausea) Follow-up/Referrals: Ryan,CHATA Valadez [Non-Staff] - Benjy Zaragoza MD [Physician] - (GI) Time of Disposition: 11:16
[2024-10-20] MEDS: PANTOPRAZOLE SODIUM IV 40 MG VIAL IV PUSH (10:01)
[2024-10-20] MEDS: SODIUM CHLORIDE 0.9% IV 1,000 ML 999 ML IV CONT (10:01)
[2024-10-20] MEDS: ONDANSETRON INJ 4 MG/2 ML VIAL IV PUSH (10:02)
--- OUTSIDE RECORDS SUMMARY | 2024-10-20 10:06 | XMS_ITS | Referral Summary ---
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
--- OUTSIDE RECORDS SUMMARY | 2024-10-20 10:06 | XMS_ITS | Clinical Summary ---
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
--- OUTSIDE RECORDS SUMMARY | 2024-10-20 10:06 | XMS_ITS | Clinical Summary ---
Author Organization [facility] Address [address], [facility] [address] [place] [address] Phone Care Team Providers Care Radiophone Operator Name Role Phone Wilber Taveras MD Primary Care Provider [phone] Allergies No known active allergies Medications sucralfate [...] Comments Blood Pressure 137/85 04/07/2023 2:15 AM CHILD CARE EDUCATION COORDINATOR Pulse 78 04/07/2023 2:15 AM CHILD CARE EDUCATION COORDINATOR Temperature 36.2 C (97.2 F) 04/07/2023 12:38 AM CHILD CARE EDUCATION COORDINATOR Respiratory Rate 20 04/07/2023 2:15 AM CHILD CARE EDUCATION COORDINATOR Oxygen Saturation 99% 04/07/2023 2:15 AM CHILD CARE EDUCATION COORDINATOR Inhaled Oxygen Concentration - - Weight 86.2 kg (190 lb) 04/07/2023 12:38 AM CHILD CARE EDUCATION COORDINATOR Height 170.2 cm (5' 7 ) 04/07/2023 12:38 AM CHILD CARE EDUCATION COORDINATOR Body Mass Index 29.76 04/07/2023 12:38 AM CHILD CARE EDUCATION COORDINATOR Plan of Treatment Health Maintenance Due Date [...] patient's age to complete this topic Insurance [place] [address] Care Teams Radiophone Operator Relationship Specialty Start Date End Date Wilber Taveras MD [address] [place] [address] PCP - General Cloak Room Attendant 04/07/23
[2024-10-20] MEDS: DICYCLOMINE HCL 10 MG CAPSULE 20 MG PO (11:19)
[2024-10-20] MEDS: BELLADONNA ALK/PHENOB ELIX 10 ML, MAG HYDROX/ALUMINUM HYD/SIMETH 30 ML, LIDOCAINE 2% VI... PO (11:20)
[2024-10-20 11:22] VITALS: BP 123/84; PULSE 54; RESP 14; O2SAT 99
== END 2024-10-20 11:29 | disposition home or self-care (01) ==
PROVIDERS: Emergency Provider Physician Assistant
DX: R10.10 Upper abdominal pain, unspecified (principal); R11.2 Nausea with vomiting, unspecified; Z87.442 Personal history of urinary calculi
CPT/HCPCS: 36415; 74177; 80053; 81001; 83690; 85025; 93005; 96361; 96374; 96375; 99284; A9270; J2405; J2470; J7030; Q9967